=== PATIENT | female | born 1955 | race Caucasian/White ===

== ENCOUNTER 2018-12-16 09:38 | Outpatient (CLI) | payer BC, SELFPAY ==
[2018-12-16 12:25] LABS: Abs Immature Grans 0.02 k/cumm (0.0-0.09); Absolute Basophil Count 0.02 k/cumm (0.0-0.2); Absolute Eosinophil Count 0.25 k/cumm (0.0-0.7); Absolute Lymphocyte Count 1.73 k/cumm (1.2-3.4); Absolute Monocyte Count 0.44 k/cumm (0.11-0.7); Absolute Neutrophil Count 2.76 k/cumm (1.2-6.7); Basophils % 0.4; Eosinophils % 4.8; HCT 40.4 % (36.0-46.0); HGB 13.2 g/dL (12.0-15.5); Immature Grans % 0.4; Lymphocytes % 33.1; Mean Corp. HGB Concentration 32.7 g/dL (32.0-36.0); Mean Corpuscular Hemoglobin 31.1 pg (27.0-33.0); Mean Corpuscular Volume 95.1 fL (80-95); Mean Platelet Volume 9.1 fL (8.0-11.0); Monocytes % 8.4; Neutrophils % 52.9; Platelet Count 225 x1000/uL (130-400); RBC 4.25 m/cumm (4.00-5.20); RBC Distribution Width 13.8 % (11.7-14.6); White Blood Cell Count 5.22 k/cumm (4.4-10.8)
[2018-12-16 12:29] LABS: ALT 13 U/L (12-78); AST 18 U/L (15-37); Albumin 3.8 g/dL (3.4-5.0); Alkaline Phosphatase 80 U/L (46-116); Anion Gap 5.4 mmol/L (3-11); BUN 24 mg/dL (7-18); Bilirubin, Total 0.4 mg/dL (0.2-1.0); CO2 30.6 mmol/L (21.0-32.0); CREATININE 0.97 mg/dL (0.55-1.02); Calcium 8.9 mg/dL (8.5-10.1); Chloride 106 mmol/L (98-107); Glucose 97 mg/dL (70-100); Potassium 4.5 mmol/L (3.5-5.1); Sodium 142 mmol/L (136-145); TSH 1.27 uIU/mL (0.358-3.74); Total Protein 7.1 g/dL (6.4-8.2)
== END 2018-12-16 09:58 ==
PROVIDERS: PCP Family Medicine; Visit Provider Family Medicine
DX: Z00.00 Encounter for general adult medical examination without abnormal findings (principal); L65.9 Nonscarring hair loss, unspecified; Z86.2 Personal history of diseases of the blood and blood-forming organs and certain disorders involving the immune mechanism
CPT/HCPCS: 36415; 80053; 84443; 85025

== ENCOUNTER 2019-02-03 08:04 | Outpatient (CLI) | payer BC, SELFPAY ==
[2019-02-03 12:47] LABS: Vitamin B12 602 pg/mL (193-986)
[2019-02-05 08:57] LABS: Vitamin D 25 Total 19.7 ng/ml (30-100)
== END 2019-02-03 08:24 ==
PROVIDERS: PCP Family Medicine; Visit Provider Family Medicine
DX: L65.9 Nonscarring hair loss, unspecified (principal)
CPT/HCPCS: 36415; 82306; 82607

== ENCOUNTER 2019-05-12 10:43 | Outpatient (CLI) | payer BC, SELFPAY ==
[2019-05-15 07:54] LABS: Vitamin D 25 Total 72.9 ng/ml (30-100)
== END 2019-05-12 11:03 ==
PROVIDERS: PCP Family Medicine; Visit Provider Family Medicine
DX: E55.9 Vitamin D deficiency, unspecified (principal); Z00.00 Encounter for general adult medical examination without abnormal findings
CPT/HCPCS: 36415; 82306

== ENCOUNTER 2020-09-16 04:09 | Outpatient (CLI) | payer BC, SELFPAY ==
[2020-09-16 13:48] LABS: ALT 13 U/L (14-59); AST 18 U/L (15-37); Albumin 3.8 g/dL (3.4-5.0); Alkaline Phosphatase 84 U/L (46-116); Anion Gap 10.3 mmol/L (3-11); BUN 19 mg/dL (7-18); Bilirubin, Total 0.4 mg/dL (0.2-1.0); CO2 27.7 mmol/L (21.0-32.0); CREATININE 0.98 mg/dL (0.55-1.02); Calcium 8.7 mg/dL (8.5-10.1); Calculated LDL 141 mg/dL (<100); Chloride 106 mmol/L (98-107); Cholesterol 202 mg/dL (<200); Estimated GFR 57.14 (mL/min/1.73m2); Glucose 121 mg/dL (74-106); HDL Cholesterol 48 mg/dL (40-60); Sodium 144 mmol/L (136-145); Total Protein 6.9 g/dL (6.4-8.2); Triglyceride 65 mg/dL (<150)
[2020-09-16 13:56] LABS: Hemoglobin A1C 6.6 % (<5.7)
[2020-09-16 14:05] LABS: Vitamin D 25 Total 100.7 ng/ml (30-100)
== END 2020-09-16 04:29 ==
PROVIDERS: PCP Family Medicine; Visit Provider Family Medicine
DX: Z00.00 Encounter for general adult medical examination without abnormal findings (principal); E11.9 Type 2 diabetes mellitus without complications
CPT/HCPCS: 36415; 80053; 80061; 82306; 83036

== ENCOUNTER 2020-10-08 00:37 | Outpatient (CLI) | payer BC, SELFPAY ==
--- NOTE | 2020-10-08 09:10 | DI.MAMMO_ITS ---
EXAM: MG MAMMO SCREENING CLINICAL HISTORY: screening,Z12.39 TECHNIQUE: Bilateral full field digital CC and MLO mammographic images were obtained with 3D tomosyn thesis and utilizing computer aided detection (CAD). COMPARISON: Available for comparison. FINDINGS: Masses/Architectural Distortion: None seen. Stable asymmetric densities in the upper outer quadrant o f both breasts. Microcalcifications: No suspicious pleomorphic-type are seen. Skin Thickening/Nipple Retraction: None. IMPRESSION: 1. No significant interval change with no specific features of malignancy noted. 2. Unless there is more urgent need, screening mammography is recommended, as per [employer] guidelines. BI-RADS Category 1 - Negative Breast Density - Category B - Scattered areas of fibroglandular density A negative radiographic report should not delay biopsy if a dominant or clinically suspicious mass is present. Up to ten percent of cancers are not identified on mammography. A negative report may reinforce clinical impression. Adenosis and dense breasts may obscure an underlying neoplasm. False positive reports average 6 to 10%. Patient will receive a letter notifying them of these results.
== END 2020-10-08 00:57 ==
PROVIDERS: PCP Family Medicine; Visit Provider Family Medicine
DX: Z12.31 Encounter for screening mammogram for malignant neoplasm of breast (principal)
CPT/HCPCS: 77063; 77067

== ENCOUNTER 2021-09-05 11:16 | Outpatient (CLI) | payer MEDICARE, SELFPAY ==
[2021-09-05 12:38] LABS: Hemoglobin A1C 6.4 % (<5.7)
[2021-09-05 13:27] LABS: ALT 16 U/L (14-59); AST 16 U/L (15-37); Albumin 4.1 g/dL (3.4-5.0); Alkaline Phosphatase 90 U/L (46-116); Anion Gap 7.7 mmol/L (3-11); BUN 19 mg/dL (7-18); Bilirubin, Total 0.4 mg/dL (0.2-1.0); CO2 26.3 mmol/L (21.0-32.0); CREATININE 0.9 mg/dL (0.55-1.02); Calcium 8.9 mg/dL (8.5-10.1); Chloride 106 mmol/L (98-107); Glucose 86 mg/dL (74-106); Potassium 4.2 mmol/L (3.5-5.1); Sodium 140 mmol/L (136-145); Total Protein 7.5 g/dL (6.4-8.2)
[2021-09-08 06:12] LABS: Vitamin D 25 Total 81.6 ng/mL (30-100)
== END 2021-09-05 11:17 | disposition home or self-care (01) ==
LOC: LOS 11:16
PROVIDERS: PCP Family Medicine; Referring Provider Family Medicine; Visit Provider Family Medicine
DX: E11.9 Type 2 diabetes mellitus without complications (principal); E55.9 Vitamin D deficiency, unspecified; K76.0 Fatty (change of) liver, not elsewhere classified; R68.89 Other general symptoms and signs
CPT/HCPCS: 36415; 80053; 82306; 83036

== ENCOUNTER 2021-10-06 12:17 | Outpatient (REF) | payer MEDICARE, SELFPAY ==
--- NOTE | 2021-10-06 08:45 | PAPFT_PTH ---
PATIENT: Jennifer Sandra LOC: [facility] U#:[id number] AGE/SX: 65/F ROOM: RE10/06/[address]: Jacquelyn Gan MD, DC : 1955 BED: DIS: 10/06/2021 SPEC #: [id number] RECD: 10/06/21 18:18 STATUS: GRAHAM REThiago #: [id number] DARWIN: 10/06/21 08:[address]: Jacquelyn Gan DEPT: [facility] Cytology RECD BY: Jordana Ramsey Tissues: 1 - CX/ENDOCX FOR PAP SMEARS Procedures: PAP THIN PREP/UVM Screening HPV DNA PROBE Comments:
== END 2021-10-06 12:18 | disposition home or self-care (01) ==
LOC: LBN 12:17
PROVIDERS: PCP Family Medicine; Visit Provider Family Medicine
DX: Z11.51 Encounter for screening for human papillomavirus (HPV) (principal); Z01.419 Encounter for gynecological examination (general) (routine) without abnormal findings; Z12.4 Encounter for screening for malignant neoplasm of cervix
CPT/HCPCS: 88142; 87624

== ENCOUNTER 2021-10-10 03:08 | Outpatient (CLI) | payer MEDICARE, SELFPAY ==
[2021-10-10 13:28] LABS: BUN 15 mg/dL (7-18); Calcium 8.6 mg/dL (8.5-10.1); Cholesterol 215 mg/dL (<200); Estimated GFR 55.64 (mL/min/1.73m2); Glucose 110 mg/dL (74-106)
[2021-10-10 13:29] LABS: ALT 15 U/L (14-59); AST 16 U/L (15-37); Albumin 3.8 g/dL (3.4-5.0); Alkaline Phosphatase 88 U/L (46-116); Anion Gap 6.9 mmol/L (3-11); Bilirubin, Total 0.4 mg/dL (0.2-1.0); CO2 28.1 mmol/L (21.0-32.0); Calculated LDL 147 mg/dL (<100); Chloride 107 mmol/L (98-107); HDL Cholesterol 51 mg/dL (40-60); Potassium 4.2 mmol/L (3.5-5.1); Sodium 142 mmol/L (136-145); Total Protein 6.8 g/dL (6.4-8.2); Triglyceride 89 mg/dL (<150)
[2021-10-10 14:51] LABS: Hemoglobin A1C 6.4 % (<5.7)
[2021-10-13 09:15] LABS: Vitamin D 25 Total 72.7 ng/mL (30-100)
[2021-10-13 09:32] LABS: Hepatitis C Ab w Rflx HCV PCR Negative (Negative)
== END 2021-10-10 03:09 | disposition home or self-care (01) ==
LOC: LOS 03:08
PROVIDERS: PCP Family Medicine; Visit Provider Family Medicine
DX: E11.9 Type 2 diabetes mellitus without complications (principal); K76.0 Fatty (change of) liver, not elsewhere classified; E55.9 Vitamin D deficiency, unspecified; Z11.59 Encounter for screening for other viral diseases
CPT/HCPCS: 36415; 80053; 80061; 82306; 86803; 83036

== ENCOUNTER 2021-12-05 00:16 | Outpatient (CLI) | payer MEDICARE, SELFPAY ==
--- NOTE | 2021-12-05 06:15 | DI.DEXA_ITS ---
Exam(s) XR DEXA BONE DENSITY W/WO NOELLE EXAM: XR DEXA BONE DENSITY W/WO NOELLE CLINICAL HISTORY: osteoporosis,M81.0 TECHNIQUE: COMPARISON: No exams were available for comparison FINDINGS: Lateral Spine Image: Unremarkable. No compression deformities identified. Left hip: Total T-Score: 1.0 Total Z-Score: 2.3 T- and Z-scores: Within normal limits. Lumbar Spine: Total T-Score: -0.6 Total Z-Score: 1.3 T- and Z-scores: Within normal limits. IMPRESSION: No evidence of osteoporosis.
--- NOTE | 2021-12-05 08:19 | DI.MAMMO_ITS ---
Exam(s) MAMMO SCREENING EXAM: MAMMO SCREENING CLINICAL HISTORY: screening,Z12.39 TECHNIQUE: Bilateral full field digital CC and MLO mammographic images were obtained with 3D tomosyn thesis and utilizing computer aided detection (CAD). COMPARISON: Available for comparison. FINDINGS: Masses/Architectural Distortion: There is a small asymmetric density in the superior right breast on the MLO view 7 cm from the nipple. Microcalcifications: No suspicious pleomorphic-type are seen. Skin Thickening/Nipple Retraction: None. IMPRESSION: 1. Focal asymmetric density in superior right breast on the MLO view. 2. This area should be further evaluated with a spot compression view. Ultrasound may be indicated a t that time. BI-RADS Category 0 - Assessment Incomplete: Need additional imaging evaluation Breast Density - Category B - Scattered areas of fibroglandular density Breast density category C or D implies that the patient has dense breast tissue. Dense breast tissue is very common and is not abnormal but dense breast tissue can make it harder to find cancer on a ma mmogram. Also, dense breast tissue may increase their breast cancer risk. This information about the result of the mammogram report was provided to the patient to raise their awareness. Use this report when you speak with the patient about their risks for breast cancer, which includes their family hist ory. At that time, you may recommend for more screening tests (Ultrasound or MRI) as they might be us eful based on their risk. A negative radiographic report should not delay biopsy if a dominant or clinically suspicious mass is present. Up to ten percent of cancers are not identified on mammography. A negative report may reinforce clinical impression. Adenosis and dense breasts may obscure an underlying neoplasm. False positive reports average 6 to 10%. Patient will receive a letter notifying them of these results.
== END 2021-12-05 00:36 ==
PROVIDERS: PCP Family Medicine; Visit Provider Family Medicine
DX: Z13.820 Encounter for screening for osteoporosis (principal); Z12.39 Encounter for other screening for malignant neoplasm of breast; R92.8 Other abnormal and inconclusive findings on diagnostic imaging of breast
CPT/HCPCS: 77063; 77067; 77080

== ENCOUNTER 2021-12-19 00:18 | Outpatient (CLI) | payer MEDICARE, SELFPAY ==
--- NOTE | 2021-12-19 09:00 | DI.MAMMO_ITS ---
Exam(s) MAMMO SCREEN CALL BACK UNI EXAM: MAMMO SCREEN CALL BACK UNI CLINICAL HISTORY: F/U ABNL MAMMO, FOCAL ASYMMETRIC DENSITY IN SUPERIOR RT BREAST TECHNIQUE: Spot compression views and tomographic imaging were performed. COMPARISON: 05 December 2021 and 2013 FINDINGS: No suspicious masses or suspicious microcalcifications are seen. No persistent abnormality is seen on the additional views performed. The findings are consistent wit h overlying fibroglandular tissue. There has been no significant change from prior exams. IMPRESSION: BI-RADS Category 1, Negative Yearly screening mammography is recommended. Breast Density - Category B, scattered fibroglandular densities.
== END 2021-12-19 00:38 ==
PROVIDERS: PCP Family Medicine; Visit Provider Family Medicine
DX: Z12.31 Encounter for screening mammogram for malignant neoplasm of breast (principal); R92.8 Other abnormal and inconclusive findings on diagnostic imaging of breast; N64.59 Other signs and symptoms in breast
CPT/HCPCS: 77063; 77067

== ENCOUNTER 2022-10-16 01:34 | Outpatient (CLI) | payer MEDICARE, SELFPAY ==
[2022-10-16 17:16] LABS: Vitamin D 25 Total 76.3 ng/mL (30-100)
== END 2022-10-16 01:35 | disposition home or self-care (01) ==
LOC: LOS 01:35
PROVIDERS: PCP Family Medicine; Visit Provider Family Medicine
DX: E55.9 Vitamin D deficiency, unspecified (principal)
CPT/HCPCS: 36415; 82306

== ENCOUNTER 2023-11-03 02:50 | Outpatient (CLI) | payer MEDICARE, SELFPAY ==
[2023-11-03 13:08] LABS: Hemoglobin A1C 6.4 % (<5.7)
[2023-11-03 13:27] LABS: Vitamin D 25 Total 92.8 ng/mL (30-100)
== END 2023-11-03 02:51 | disposition home or self-care (01) ==
LOC: LOS 02:50
PROVIDERS: PCP Family Medicine; Visit Provider Family Medicine
DX: E55.9 Vitamin D deficiency, unspecified (principal); E11.9 Type 2 diabetes mellitus without complications
CPT/HCPCS: 36415; 82306; 83036

== ENCOUNTER 2024-11-28 09:04 | Outpatient (CLI) | payer MEDICARE, SELFPAY ==
[2024-11-28 13:05] LABS: ALT 9 U/L (14-59); AST 20 U/L (15-37); Albumin 4.1 g/dL (3.4-5.0); Alkaline Phosphatase 93 U/L (46-116); Anion Gap 5.9 mmol/L (3-11); BUN 19 mg/dL (7-18); Bilirubin, Total 0.58 mg/dL (0.2-1.0); CO2 29.1 mmol/L (21.0-32.0); CREATININE 1.1 mg/dL (0.55-1.02); Calcium 9.4 mg/dL (8.5-10.1); Calculated LDL 147 mg/dL (<100); Chloride 109 mmol/L (98-107); Cholesterol 225 mg/dL (<200); Estimated GFR 54.73 (mL/min/1.73m2); Glucose 104 mg/dL (74-106); HDL Cholesterol 64 mg/dL (40-60); Potassium 4.1 mmol/L (3.5-5.1); Sodium 144 mmol/L (136-145); TSH (W/Ref FT4) 2.58 uIU/mL (0.36-3.74); Triglyceride 73 mg/dL (<150)
[2024-11-28 13:17] LABS: Hemoglobin A1C 5.9 % (<5.7)
== END 2024-11-28 09:05 | disposition home or self-care (01) ==
LOC: LOS 09:05
PROVIDERS: PCP Family Medicine; Referring Provider Family Medicine; Visit Provider Family Medicine
DX: E11.9 Type 2 diabetes mellitus without complications (principal); I10 Essential (primary) hypertension; E03.9 Hypothyroidism, unspecified; Z12.39 Encounter for other screening for malignant neoplasm of breast; Z23 Encounter for immunization
CPT/HCPCS: 36415; 80053; 80061; 83036; 84443

== ENCOUNTER 2024-12-15 00:56 | Outpatient (CLI) | payer MEDICARE, SELFPAY ==
--- OUTSIDE RECORDS SUMMARY | 2024-12-15 01:00 | XMS_ITS | Encounter Summary ---
Author Organization [facility] Address [address] [place] [address] Care Team Providers Care Associate Sales Name Role Phone Unavailable Primary Care Provider Unavailabl e Encounter Details Date Type Department Care Team (Late st Contact Info) Description 01/12/2000 Results Only [facility] - Map conversion [address] [place] [address] Marilee Carpenter NP Social History Tobacco Use Types Packs/Day Years Used Date Smoking Tobacco: Never Assessed Comments Unknown Sex and Gender Information Value Date Recorded Sex Assigned at Not on file Legal Sex Female 18:09 EST Gender Identity Not on file Sexual Orientation Not on file documented as of this encounter Plan of Treatment Not on file documented as of this encounter Procedures Procedure Name Priority Date/Time Associated Diagnosis Comments CYTOPATHOLOGY Routine 01/12/2000 12:10 EST documented in this encounter Results * CYTOPATHOLOGY (01/12/2000 12:10 EST) Pathology Report: CYTOPATHOLOGY REPORT Reports generated via electronic interface contain original data; however they are lacking the format of the original report. Caution should be taken when reading/interpreti ng unformatted reports. Name: ? JENNIFER PARIKH ? Accession #: ? [id number] : ? 1955 (Age: 44) ??F ?Collect Date: ? 01/12/2000 Location: ?Receive Date: ? 01/12/2000 Provider: ?MARILEE CARPENTER NP Copy to: ?MARILEE CARPENTER NP ? Specimen/Source: ?Barrel Stave Inspector ThinPrep Last Menstrual Period: ? GYNECOLOGIC ??CYTOPATHOLOGY ??REPORT Name: JENNIFER PARIKH ?[facility] : 1955 ?? 44Y F ?Client ID: [id number] SS#: [id number] ? Clinician: GWYN CARPENTER NP ?? Location: [facility] ??Copy to: ?? Specimen: ?Barrel Stave Inspector ThinPrep ? Source: Cervix/Endocervix ?Collected: 01/08/00 ? Received: 01/12/2000 ?LMP: 12/26/99 ? Hormone Therapy: Yes ? : No ? Radiation Therapy: No ?? Post : No ?Chemotherapy: No ?IUD: No ? Prev Abnormal Pap: No ?? Clinical Hx: ?(Blank isidro indicate information not provided on requisition) SPECIMEN ADEQUACY: ? Satisfactory For Evaluation ?? GENERAL CATEGORIZATION: ? WITHIN NORMAL LIMITS ? Reviewed And Electronically Signed By: ? Mickie Alves, SCT(ASCP) ? Report Date: ?? 01/13/2000 [facility] Archived Tests - Final Diagnosis Text Field: Clinical History : ? Document reviewed and electronically signed by: ? Conversion ? Report Date: ??01/13/2000 00:00 End of Report DANIEL STACY 01/12/2000 12:1 0 EST 01/12/2000 12:11 EST us Marilee Carpenter NP PATHOLOGY ORDERABLES Final Re sult DANIEL STACY [address] [place] [address] documented in this encounter Visit Diagnoses Not on filedocumented in this encounter
--- OUTSIDE RECORDS SUMMARY | 2024-12-15 01:00 | XMS_ITS | Referral Summary ---
Author Organization [facility] Address [address] [place] [address] Care Team Providers Care Mainspring Strip Gauger Name Role Phone Angelic Love MD Primary Care Provide r Unavailable Social History Tobacco Use Types Packs/Day Years Used Date Smoking Tobacco: Never Assessed Comments Unknown Sex and Gender Information Value Date Recorded Sex Assigned at Not on file Legal Sex Female 18:09 EST Gender Identity Not on file Sexual Orientation Not on file Plan of Treatment Not on file Procedures Procedure Name Priority Date/Time Associated Diagnosis Comments HEPATITIS C AB W REFLEX TO HCV RNA BY PCR Routine 10/10/2021 9:34 EST from Last 3 Months or Most Recently Relevant to Health Maintenance Results * HEPATITIS C AB W REFLEX TO HCV RNA BY PCR (10/10/2021 9:34 EST) Hep C Antibody Negative Negative 10/13/2021 9:27 EST [facility] Blood VENOUS BLOOD / Unknown 10/10/2021 9:34 EST 10/10/2021 21:29 EST us Provider Outr Resulting Lab CHEMISTRY & BLOOD GA S ORDERABLES Final Result [facility] [address] [place] [address] from Last 3 Months or Most Recently Relevant to Health Maintenance Care Teams Mainspring Strip Gauger Relationship Specialty Start Date End Date Angelic Love MD PCP - General 10/08/15
--- OUTSIDE RECORDS SUMMARY | 2024-12-15 01:00 | XMS_ITS | Encounter Summary ---
Author Organization [facility] [place] [address] Care Team Providers Care Boilermaker Mechanic Name Role Phone Jacquelyn Gan MD Primary Care Provider [phone] Reason for Visit * Reason Comments Skin Check * Consultation (Urgent) - Closed Specialty Diagnoses / Procedures Referred By Contac t Referred To Contact Dermatology Diagnoses SEBORRHEIC DERMATITIS Sly Roberson MD [address] [place] [phone] [facility] Dermatology [address] [place] [address] Referral ID Status Reason Start Date Expiration Date V isits Requested Visits Authorized [id number] Closed Consult, Test & Treat [facility] 12/27/2018 12/27/2019 1 1 Encounter Details Date Type Department Care Team ([facility] Contact Info) Description 12/30/2018 11:00 AM EST Office Visit Dermatology at [facility] [address] [place] [phone] Krystal Henriquez MD Seborrheic dermatitis of scalp; Telogen effluvium Social History Tobacco Use Types Packs/Day Years Used Date Smoking Tobacco: Never Smokeless Tobacco: Never Sex and Gender Information Value Date Recorded Sex Assigned at Not on file Gender Identity Not on file Sexual Orientation Not on file documented as of this encounter Progress Notes * Krystal Henriquez MD - 12/30/2018 11:00 AM EST DERMATOLOGY OUTPATIENT CLINIC NOTE Date of service: 12/30/2018 Jennifer Sandra : 1955 Provider: Krystal Henriquez MD PROBLEM: hair loss and itchy scalp SKIN HISTORY: none HPI Jennifer Sandra is a 63 y.o. year old female.Patient is here for hair loss x 2 months. Patient states that she was put on cephalexin because her scalp was red and itchy. Patient was on prednisone taper dose with some improvement in the redness. She has never been given any topicals for the hair loss or the redness. She feels the hair is the most thin on the top of the scalp. She purchased some hair loss shampoo at her salon and is tea tree oil based. She has only used it a few times. She has not tried anything else topically. She has not noticed any loss of her eyebrows or other hair on thebody. She does not that her mother also has some thinner hair. Social History: Office work / Self employed Family History: ADR: Allergies not on file CURRENT MEDICATIONS: No current outpatient medications on file. No current facility-administered medications for this visit. PROBLEM LIST: There is no problem list on file for this patient. ROS General: feeling well. Oriented X 3. Skin: denies other skin complaints EXAM General: NAD, pleasant, cooperative Skin: focused exam of the scalp Significant skin findings: - scalp: diffuse erythema with a little scale; - slight widening of the part on the scalp vertex; eyebrows intact and no perifollicular erythema; patient reports no muscle weakness ASSESSMENT/PLAN Seborrheic Dermatitis -I discussed this condition with the patient, overgrowth of yeast that usually comes in the oily areas and skin folds. Chronic condition and maintenance with topical treatments. 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 - Ok to continue washing and styling as normal, Ok to use any shampoo, if she would like to use a shampoo with no fragrance then consider Free and Clear. - Discussed Minoxidil 5% with patient, no need at this time, but she may consider in the future - CBC, CMP, and TSH done at an outside hospital recently all appeared normal ? RTC - 6 months for mohsen derm f/u Note initiated and routed to physician for review and change by: Jackie Bustillos, [facility] I, Zita Andujar , have performed the documentation for this encounter in the presenceof and acting as a scribe for Krystal Henriquez MD. I, Dr. Krystal Henriquez, performed the visit service though my nurse assisted me in scribing the note. I reviewed and edited this note above, a scribed service performed by my nurse. On closure of this note I agree with the accuracy of the documentation. Krystal Henriquez MD Section of Dermatology [facility] documented in this encounter Plan of Treatment Not on file documented as of this encounter Visit Diagnoses Diagnosis Seborrheic dermatitis of scalp Other seborrheic dermatitis Telogen effluvium documented in this encounter Care Teams Boilermaker Mechanic Relationship Specialty Start Date End Date Jacquelyn Gan MD [address] [place] [address] PCP - General Family Medicine 12/30/18 documented as of this encounter
--- OUTSIDE RECORDS SUMMARY | 2024-12-15 01:00 | XMS_ITS | Encounter Summary ---
Author Organization [facility] Address [address] [place] [address] Care Team Providers Care Tungsten Tender Name Role Phone Unavailable Primary Care Provider Unavailabl e Encounter Details Date Type Department Care Team (Late st Contact Info) Description 03/27/2004 Results Only [facility] - [place] conversion [address] [place] [address] Marilee Carpenter NP Social History Tobacco Use [...] Priority Date/Time Associated Diagnosis Comments CYTOPATHOLOGY Routine 03/27/2004 0:00 EDT documented in this encounter Results * CYTOPATHOLOGY (03/27/2004 0:00 EDT) Pathology Report: CYTOPATHOLOGY REPORT Reports generated via electronic interface contain original data; however they are lacking the format of the original report. Caution should be taken when reading/interpreti ng unformatted reports. Name: ? JENNIFER SANDRA ? Accession #: ? [id number] : ? 1955 (Age: 48) ??F ?Collect Date: ? 03/27/2004 Location: ? [facility] ? Receive Date: ? 03/28/2004 Provider: ?MARILEE CARPENTER METAL DRILLING MACHINE OPERATOR Copy to: ? Specimen/Source: ?ThinPrep Pap Test, Cervix/Endocervix Last Menstrual Period: ? 03/18/04 Hormonal/Contracep tive Status: ? Oral contraceptives Previous Gynecologic Pathology: ? Benign cellular changes: 12/30 Other: ? Additional clinical information: Paps 2002 & 2003 negative ? SPECIMEN ADEQUACY ? Satisfactory for Evaluation - transformation zone component present GENERAL CATEGORIZATION ? Negative for Intraepithelial Lesion or Malignancy INTERPRETATION ? Reactive cellular changes associated with inflammation present (includes repair). ? Document reviewed and electronically signed by: ? Gilmer Mcclain MD ? Report Date: ??04/03/2004 13:06 End of Report DANIEL STACY 03/27/2004 03/28/2004 us Marilee Carpenter NP PATHOLOGY ORDERABLES Final Re sult DANIEL STACY [address] [place] [address] documented in this encounter Visit Diagnoses Not on filedocumented in this encounter
--- OUTSIDE RECORDS SUMMARY | 2024-12-15 01:00 | XMS_ITS | Encounter Summary ---
Author Organization [facility] Address [address] [place] [address] Care Team Providers Care Social Media Director Name Role Phone Angelic Love MD Primary Care Provide r Unavailable Encounter Details Date Type Department Care Team (Late st Contact Info) Description 10/07/2021 Lab Requisition [facility] Pathology & Laboratory Medicine - [address] [address] Jacquelyn Gan MD [address] [place] [phone] Encounter for other general examination Social History Tobacco Use Types Packs/Day Years [...] Procedure Name Priority Date/Time Associated Diagnosis Comments PAP TEST Today 10/06/2021 8:45 EST Encounter for other general examination HPV DNA DETECTION WITH GENOTYPING, PCR Today 10/06/2021 8:45 EST Encounter for other general examination documented in this encounter Results * HUMAN PAPILLOMAVIRUS (HPV) DETECTION-HIGH RISK TYPES (10/06/2021 8:45 EST) HPV other High Risk types, PCR Negative Negative 10/15/2021 7:[address] [facility] Comment:No E6 or E7 mRNA is detected from HPV types 16,18,31,33,35,39,45,51,52,56,58,59,66, and 68 by shop welder mediated amplification. Papanicolaou smear specimen (specimen) CERVIX UTERI STRUCTURE / Unknown 10/06/2021 8:45 EST 10/13/2021 15:42 EST Jacquelyn Gan MD MICROBIOLOGY - GENERAL ORDE MICHELLE Final Result [facility] [address] [place] [address] * PAP TEST (10/06/2021 8:45 EST) Specimens A. Cervix and/or Endocervix , ThinPrep Imaging System with Manual Evaluation 10/15/2021 7:29 [facility] Specimen Adequacy Satisfactory for Evaluation - transformation zone component present 10/15/2021 7:29 [facility] General Categorization Negative for intraepithelial lesion or malignancy 10/15/2021 7:29 [facility] Attestation . 10/15/2021 7:29 [facility] at 0729 Clinical History See below 10/15/20 7:29 [facility] HPV The result for the Human Papillomavirus (HPV) Detection-High Risk Types is Negative. No E6 or E7 mRNA is detected from HPV types 16,18,31,33,35,39 ,45,51,52,56,58,5 9,66, and 68 by shop welder mediated amplification.Flor ting was performed on specimen [id number] and was resulted on 10/15/2021 0710 EST by POOJA, LAB INSTRUMENT RESULTS IN 10/15/2021 7:29 [facility] Performing Lab [facility] 10/15/2021 7:29 [facility] Scanned Images 10/15/2021 7:29 [facility] Papanicolaou smear specimen (specimen) CERVIX UTERI STRUCTURE / Unknown 10/06/2021 8:45 EST 10/07/2021 14:26 EST Jacquelyn Gan MD PATHOLOGY ORDERABLES Final Result [facility] [address] [place] [address] documented in this encounter Visit Diagnoses Diagnosis Encounter for other general examination documented in this encounter Care Teams Social Media Director Relationship Specialty Start Date End Date Angelic Love MD PCP - General 10/08/15 documented as of this encounter
--- OUTSIDE RECORDS SUMMARY | 2024-12-15 01:00 | XMS_ITS | Encounter Summary ---
Author Organization [facility] Address [address] [place] [address] Care Team Providers Care Outsole Skiver Name Role Phone Unavailable Primary Care Provider Unavailabl e Encounter Details Date Type Department Care Team (Late st Contact Info) Description 02/15/2008 Results Only [facility] conversion [address] [place] [address] Marilee Carpenter NP Social History Tobacco Use [...] Priority Date/Time Associated Diagnosis Comments CYTOPATHOLOGY Routine 02/15/2008 0:00 EDT documented in this encounter Results * CYTOPATHOLOGY (02/15/2008 0:00 EDT) Pathology Report: CYTOPATHOLOGY REPORT Reports generated via electronic interface contain original data; however they are lacking the format of the original report. Caution should be taken when reading/interpreti ng unformatted reports. Name: ? JENNIFER SANDRA ? Accession #: ? [id number] : ? 1955 (Age: 52) ??F ?Collect Date: ? 02/15/2008 Location: ? [facility] ? Receive Date: ? 02/15/2008 Provider: ?MARILEE CARPENTER HAND THERAPIST Copy to: ? Specimen/Source: ?ThinPrep Pap Test, Cervix/Endocervix, processed on [employer] Virtus ThinPrep Imaging System, with manual evaluation Last Menstrual Period: ? 2004 Previous Gynecologic Pathology: ? Benign cellular changes: 12/30 ? SPECIMEN ADEQUACY ? Satisfactory for Evaluation - transformation zone component present GENERAL CATEGORIZATION ? Negative for Intraepithelial Lesion or Malignancy ? Document reviewed and electronically signed by: ? [place], [place](ASCP) ? Report Date: ??02/21/2008 10:19 End of Report DANIEL STACY 02/15/2008 02/15/2008 us Marilee Carpenter NP PATHOLOGY ORDERABLES Final Re sult [facility] [address] [place] [address] documented in this encounter Visit Diagnoses Not on filedocumented in this encounter
--- OUTSIDE RECORDS SUMMARY | 2024-12-15 01:00 | XMS_ITS | Encounter Summary ---
Author Organization [facility] Address [address] [place] [address] Care Team Providers Care Collections Professional Name Role Phone Unavailable Primary Care Provider Unavailabl e Encounter Details Date Type Department Care Team (Late st Contact Info) Description 09/11/2014 Results Only [facility] Laboratory Services - [facility] [address] [place], [place] [id number] Jacquelyn Gan MD [address] [place] [phone] Social History Tobacco Use Types Packs/Day Years [...] Name Priority Date/Time Associated Diagnosis Comments PAP TEST- RESULT ONLY Routine 09/11/2014 0:00 EDT documented in this encounter Results * PAP TEST- RESULT ONLY (09/11/2014 0:00 EDT) Pathology Report: CYTOPATHOLOGY REPORT Reports generated via electronic interface contain original data; however they are lacking the format of the original report. Caution should be taken when reading/interpreti ng unformatted reports. Name: ? JENNIFER SANDRA ? Accession #: ? [id number] ? : ? 1955 (Age: 58) ??F ?Collect Date: ? 09/11/2014 ? Location: ? [facility] ? Receive Date: ? 09/12/2014 ? Provider: JACQUELYN GAN MD Copy to: ? Final Report SPECIMEN ADEQUACY ? Satisfactory for Evaluation - transformation zone component present GENERAL CATEGORIZATION ? Negative for Intraepithelial Lesion or Malignancy ?? Menstrual/Pregnanc y Status: ??Post Menopausal Other: Additional clinical information: No h/o abn pap Specimen/Source: ??Pap Test, Cervix/Endocervix, ThinPrep Imaging System with manual evaluation Document reviewed and electronically signed by: ? AKRLA Lacy(ASCP) ? Report ??Date: 09/18/2014 10:09 HPV with Pap Test ? Date Ordered: ? 09/18/2014 ? Status: ?? Signed Out ?Date Complete: ? 09/20/2014 ? By: ??System Interface ? Date Reported: ? 09/20/2014 ? Interpretation RESULT: Negative for HPV. No E6 or E7 mRNA is detected from HPV types 16,18,31,33,35, 39,45,51,52,56,58, 59,66, and 68 by coupler mediated amplification. Comments Document reviewed and electronically signed by: ? System Interface ? Report date: 09/20/2014 By the signature above, the attending physician certifies that he/she has personally conducted a gross and/or microscopic examination of the described specimens and rendered or confirmed the above diagnosis. End of Report [facility] 09/11/2014 09/12/2014 us Jacquelyn Gan MD PATHOLOGY ORDERABLES Final Result Performing Organization Address City/State/[facility] Co de Phone Number [facility] [address] [place] [phone] documented in this encounter Visit Diagnoses Not on filedocumented in this encounter
--- OUTSIDE RECORDS SUMMARY | 2024-12-15 01:00 | XMS_ITS | Encounter Summary ---
Author Organization [facility] Address [address] [place] [address] Care Team Providers Care Automatic Pad Making Machine Operator Name Role Phone Angelic Love MD Primary Care Provide r Unavailable Encounter Details Date Type Department Care Team (Late st Contact Info) Description 01/18/2018 Results Only [facility] [phone] Jacquelyn Gan MD [address] [place] [address] Social History Tobacco Use Types Packs/Day Years [...] Diagnosis Comments PAP TEST- RESULT ONLY Routine 01/18/2018 0:00 EST documented in this encounter Results * PAP TEST- RESULT ONLY (01/18/2018 0:00 EST) Pathology Report: CYTOPATHOLOGY REPORT Reports generated via electronic interface contain original data; however they are lacking the format of the original report. Caution should be taken when reading/interpreti ng unformatted reports. Name: ? ELIZA SANDRA ? Accession #: ? [id number] ? : ? 1955 (Age: 62) ??F ?Collect Date: ? 01/18/2018 ? Location: ? [facility] ? Receive Date: ? 01/20/2018 ? Provider: JACQUELYN GAN MD Copy to: ? Final Report SPECIMEN ADEQUACY ? Satisfactory for Evaluation - transformation zone component present GENERAL CATEGORIZATION ? Negative for Intraepithelial Lesion or Malignancy ?? Menstrual/Pregnanc y Status: ??Post Menopausal Specimen/Source: ??Pap Test, Cervix, ThinPrep Imaging System with manual evaluation Document reviewed and electronically signed by: ? Annamaria Shearer CT(ASCP) ? Report ??Date: 02/01/2018 15:03 HPV with Pap Test ? Date Ordered: ? 02/01/2018 ? Status: ?? Signed Out ?Date Complete: ? 02/02/2018 ? By: ??System Interface ? Date Reported: ? 02/02/2018 ? Interpretation RESULT: Negative for HPV. No E6 or E7 mRNA is detected from HPV types 16,18,31,33,35, 39,45,51,52,56,58, 59,66, and 68 by puller over mediated amplification. Comments Document reviewed and electronically signed by: ? System Interface ? Report date: 02/02/2018 By the signature above, the attending physician certifies that he/she has personally conducted a gross and/or microscopic examination of the described specimens and rendered or confirmed the above diagnosis. End of Report [facility] 01/18/2018 01/20/2018 us Jacquelyn Gan MD PATHOLOGY ORDERABLES Final Result [facility] [address] [place] [address] documented in this encounter Visit Diagnoses Not on filedocumented in this encounter Care Teams Automatic Pad Making Machine Operator Relationship Specialty Start Date End Date Angelic Love MD PCP - General 10/08/15 documented as of this encounter
--- OUTSIDE RECORDS SUMMARY | 2024-12-15 01:00 | XMS_ITS | Encounter Summary ---
Author Organization [facility] Address [address] [place] [address] Care Team Providers Care Torpedo Specialist Name Role Phone Angelic Love MD Primary Care Provide r Unavailable Encounter Details Date Type Department Care Team (Late st Contact Info) Description 10/10/2021 Lab Requisition [facility] [place] [address] Outr Resulting Lab, Provider Social History Tobacco Use Types Packs/Day Years [...] RNA BY PCR Routine 10/10/2021 9:34 EST documented in this encounter Results * HEPATITIS C AB W REFLEX TO HCV RNA BY PCR (10/10/2021 9:34 EST) Hep C Antibody Negative Negative 10/13/2021 9:27 EST [facility] Blood VENOUS BLOOD / Unknown 10/10/2021 9:34 EST 10/10/2021 21:29 EST us Provider Outr Resulting Lab CHEMISTRY & BLOOD GA S ORDERABLES Final Result [facility] [address] [place] [address] documented in this encounter Visit Diagnoses Not on filedocumented in this encounter Care Teams Torpedo Specialist Relationship Specialty Start Date End Date Angelic Love MD PCP - General 10/08/15 documented as of this encounter
--- OUTSIDE RECORDS SUMMARY | 2024-12-15 01:00 | XMS_ITS | Encounter Summary ---
Author Organization [facility] Address [address] [place] [address] Care Team Providers Care Digital Content Manager Name Role Phone Unavailable Primary Care Provider Unavailabl e Encounter Details Date Type Department Care Team (Late st Contact Info) Description 02/09/2002 Results Only [facility] - Map conversion [address] [place] [address] Marilee Carpenter NP Social History Tobacco Use [...] Priority Date/Time Associated Diagnosis Comments CYTOPATHOLOGY Routine 02/09/2002 0:00 EST documented in this encounter Results * CYTOPATHOLOGY (02/09/2002 0:00 EST) Pathology Report: CYTOPATHOLOGY REPORT Reports generated via electronic interface contain original data; however they are lacking the format of the original report. Caution should be taken when reading/interpreti ng unformatted reports. Name: ? JENNIFER SANDRA ? Accession #: ? [id number] : ? 1955 (Age: 46) ??F ?Collect Date: ? 02/09/2002 Location: ? [facility] ? Receive Date: ? 02/10/2002 Provider: ?MARILEE CARPENTER ACCESS ANALYST Copy to: ? Specimen/Source: ?ThinPrep Pap Test, Cervix/Endocervix Last Menstrual Period: ? 01/26/02 Hormonal/Contracep tive Status: ? Oral contraceptives Previous Gynecologic Pathology: ? Benign cellular changes: 12/30 ? SPECIMEN ADEQUACY ? Satisfactory for Evaluation - transformation zone component present GENERAL CATEGORIZATION ? Negative for Intraepithelial Lesion or Malignancy ? Document reviewed and electronically signed by: ? Mickie Alves, SCT(ASCP) ? Report Date: ??02/15/2002 10:54 End of Report [facility] 02/09/2002 02/10/2002 us Marilee Carpenter ACCESS ANALYST PATHOLOGY ORDERABLES Final Re sult [facility] [address] [place] [address] documented in this encounter Visit Diagnoses Not on filedocumented in this encounter
--- OUTSIDE RECORDS SUMMARY | 2024-12-15 01:00 | XMS_ITS | Clinical Summary ---
Author Organization [facility] Address [address] [place] [address] Care Team Providers Care Curriculum Consultant Name Role Phone Angelic Love MD Primary Care Provide r Unavailable Social History Tobacco Use Types Packs/Day Years Used Date Smoking Tobacco: Never Assessed Comments Unknown Sex and Gender Information Value Date Recorded Sex Assigned at Not on file Legal Sex Female 18:09 EST Gender Identity Not on file Sexual Orientation Not on file Plan of Treatment Health Maintenance Due Date Last Done Comments Fall Risk Screening 2020 COVID-19 Vaccine (2023-25 season) 2024 RSV Immunization ( o r 60+ Years) (1 - 1-dose 75+ series) 2030 Hepatitis C Screen Completed 10/10/2021 Procedures Procedure Name Priority Date/Time Associated Diagnosis Comments HEPATITIS C AB W REFLEX TO HCV RNA BY PCR Routine 10/10/2021 9:34 EST from Last 3 Months or Most Recently Relevant to Health Maintenance Results * HEPATITIS C AB W REFLEX TO HCV RNA BY PCR (10/10/2021 9:34 EST) Hep C Antibody Negative Negative 10/13/2021 9:27 EST [facility] Blood VENOUS BLOOD / Unknown 10/10/2021 9:34 EST 10/10/2021 21:29 EST us Provider Outr Resulting Lab CHEMISTRY & BLOOD GA S ORDERABLES Final Result [facility] [address] [place] [address] from Last 3 Months or Most Recently Relevant to Health Maintenance Care Teams Curriculum Consultant Relationship Specialty Start Date End Date Angelic Love MD PCP - General 10/08/15
--- OUTSIDE RECORDS SUMMARY | 2024-12-15 01:00 | XMS_ITS | Encounter Summary ---
Author Organization [facility] Address [address] [place] [address] Care Team Providers Care First Coat Operator Name Role Phone Unavailable Primary Care Provider Unavailabl e Encounter Details Date Type Department Care Team (Late st Contact Info) Description 01/13/2001 Results Only [facility] - Map conversion [address] [place] [address] Marilee Carpenter NP Social History Tobacco Use [...] Priority Date/Time Associated Diagnosis Comments CYTOPATHOLOGY Routine 01/13/2001 0:00 EST documented in this encounter Results * CYTOPATHOLOGY (01/13/2001 0:00 EST) Pathology Report: CYTOPATHOLOGY REPORT Reports generated via electronic interface contain original data; however they are lacking the format of the original report. Caution should be taken when reading/interpreti ng unformatted reports. Name: ? JENNIFER SANDRA ? Accession #: ? [id number] : ? 1955 (Age: 45) ??F ?Collect Date: ? 01/13/2001 Location: ? [facility] ? Receive Date: ? 01/14/2001 Provider: ?MARILEE CARPENTER LEAD SOFTWARE ENGINEER Copy to: ? Specimen/Source: ?ThinPrep Pap Test, Cervix/Endocervix Last Menstrual Period: ? 12/14/00 Hormonal/Contracep tive Status: ? Oral contraceptives ? SPECIMEN ADEQUACY ? Satisfactory for evaluation. GENERAL CATEGORIZATION ? Benign Cellular Changes DESCRIPTIVE DIAGNOSIS ? Reactive cellular changes associated with inflammation present (includes repair). ? Document reviewed and electronically signed by: ? JENNIFER ROBERTSON MD ? Report Date: ??01/18/2001 15:20 End of Report [facility] 01/13/2001 01/14/2001 us Marilee Carpenter NP PATHOLOGY ORDERABLES Final Re sult [facility] [address] [place] [address] documented in this encounter Visit Diagnoses Not on filedocumented in this encounter
--- OUTSIDE RECORDS SUMMARY | 2024-12-15 01:00 | XMS_ITS | Clinical Summary ---
Author Organization [facility] Address [facility] [place] [address] Care Team Providers Care Material Analyst Name Role Phone Jacquelyn Gan MD Primary Care Provider [phone] Allergies Active Allergy Reactions Criticality Noted Date Comments Penicillins Medium 12/30/2018 Per patient she blacked out Medications Medication Sig Dispensed Refills Start Date End Date Status cephalexin (KEFLEX) 500 mg Capsule take 1 capsule by mouth twice a day 0 12/27/2018 Active betamethasone dipropionate (DIPROLENE) 0.05 % LotionIndications: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 at night, use 2-4 nights a week for maintenance, for flaring use nightly 60 mL 2 12/30/2018 Active Active Problems No known active problems Social History Tobacco Use Types Packs/Day Years Used Date Smoking Tobacco: Never Smokeless Tobacco: Never Sex and Gender Information Value Date Recorded Sex Assigned at Not on file Gender Identity Not on file Sexual Orientation Not on file Plan of Treatment Health Maintenance Due Date Last Done Comments CT Colonography 1955 Colonoscopy 1955 Colorectal Cancer Screening 1955 FIT DNA 1955 FIT 1955 Sigmoidoscopy (10 year) with FIT yearly 1955 Sigmoidoscopy 1955 Hepatitis C Screening 1973 Tetanus/Diphtheria/Pertussis Vaccines (1 - Tdap) 12/04 Breast Cancer Share Decision Needed 1995 Breast Cancer screening 1995 Pneumoccocal Vaccine: 50+ (1 of 1 - PCV) 2005 Zoster vaccine (1 of 2) 2005 Advance Directive 2010 Bone Density Scan 2020 Covid-19 Vaccine ( season) 2024 Influenza (Flu) vaccine (1 o f 1 - Influenza standard series) 07/30/2024 Care Teams Material Analyst Relationship Specialty Start Date End Date Jacquelyn Gan MD [address] [place], [place] [id number] PCP - General Family Medicine 12/30/18
--- OUTSIDE RECORDS SUMMARY | 2024-12-15 01:00 | XMS_ITS | Encounter Summary ---
Author Organization [facility] Address [address] [place] [address] Care Team Providers Care Hooker Up Name Role Phone Unavailable Primary Care Provider Unavailabl e Encounter Details Date Type Department Care Team (Late st Contact Info) Description 04/07/2005 Results Only [facility] - Maple conversion [address] [place] [address] [address] [place] [id number] Social History Tobacco Use Types Packs/Day Years [...] Priority Date/Time Associated Diagnosis Comments CYTOPATHOLOGY Routine 04/07/2005 0:00 EDT documented in this encounter Results * CYTOPATHOLOGY (04/07/2005 0:00 EDT) Pathology Report: CYTOPATHOLOGY REPORT Reports generated via electronic interface contain original data; however they are lacking the format of the original report. Caution should be taken when reading/interpreti ng unformatted reports. Name: ? BOAZELIZA Steven ? Accession #: ? [id number] : ? 1955 (Age: 49) ??F ?Collect Date: ? 04/07/2005 Location: ? [facility] ? Receive Date: ? 04/09/2005 Provider: ?GRETEL DAVENPORT PSYCH SOCIAL WORKER Copy to: ? Specimen/Source: ?ThinPrep Pap Test, Cervix/Endocervix Last Menstrual Period: ? 03/18/05 Previous Gynecologic Pathology: ? Benign cellular changes Other: ? HPVA - HPV testing requested if ASC-US on the current ThinPrep Pap test. ? SPECIMEN ADEQUACY ? Satisfactory for Evaluation - transformation zone component present GENERAL CATEGORIZATION ? Negative for Intraepithelial Lesion or Malignancy ? Document reviewed and electronically signed by: ? KARLA Tamayo(ASCP) ? Report Date: ??04/15/2005 13:00 End of Report DANIEL STAC[facility] 04/07/2005 04/09/2005 us Gretel Davenport PSYCH SOCIAL WORKER PATHOLOGY ORDERABLES Final R esult [facility] [address] [place] [address] documented in this encounter Visit Diagnoses Not on filedocumented in this encounter
--- OUTSIDE RECORDS SUMMARY | 2024-12-15 01:00 | XMS_ITS | Encounter Summary ---
Author Organization [facility] Address [address] [place] [address] Care Team Providers Care Partner Manager Name Role Phone Unavailable Primary Care Provider Unavailabl e Encounter Details Date Type Department Care Team (Late st Contact Info) Description 02/12/2003 Results Only [facility] - Map conversion [address] [place] [address] Marilee Carpenter NP Social History Tobacco Use [...] Priority Date/Time Associated Diagnosis Comments CYTOPATHOLOGY Routine 02/12/2003 0:00 EST documented in this encounter Results * CYTOPATHOLOGY (02/12/2003 0:00 EST) Pathology Report: CYTOPATHOLOGY REPORT Reports generated via electronic interface contain original data; however they are lacking the format of the original report. Caution should be taken when reading/interpreti ng unformatted reports. Name: ? JENNIFER SANDRA ? Accession #: ? [id number] : ? 1955 (Age: 47) ??F ?Collect Date: ? 02/12/2003 Location: ? [facility] ? Receive Date: ? 02/13/2003 Provider: ?MARILEE CARPENTER EMPLOYEE BENEFITS COORDINATOR Copy to: ? Specimen/Source: ?ThinPrep Pap Test, Cervix/Endocervix Last Menstrual Period: ? 01/25/03 Hormonal/Contracep tive Status: ? Oral contraceptives Previous Gynecologic Pathology: ? Benign cellular changes: 12/30 ? SPECIMEN ADEQUACY ? Satisfactory for Evaluation - transformation zone component present GENERAL CATEGORIZATION ? Negative for Intraepithelial Lesion or Malignancy ? Document reviewed and electronically signed by: ? Cara Knox, SCT(ASCP) ? Report Date: ??02/14/2003 10:39 End of Report DANIEL STACY 02/12/2003 02/13/2003 us Marilee Carpenter NP PATHOLOGY ORDERABLES Final Re sult [facility] [address] [place] [address] documented in this encounter Visit Diagnoses Not on filedocumented in this encounter
[2024-12-15 13:01] LABS: Vitamin D 25 Total 94.1 ng/mL (30-100)
== END 2024-12-15 00:57 | disposition home or self-care (01) ==
LOC: LOS 00:57
PROVIDERS: PCP Family Medicine; Visit Provider Family Medicine
DX: E55.9 Vitamin D deficiency, unspecified (principal)
CPT/HCPCS: 36415; 82306

== ENCOUNTER 2024-12-18 01:20 | Outpatient (CLI) | payer MEDICARE, SELFPAY | END 2024-12-18 01:40 | LOC: DI 01:21 | PROVIDERS: PCP Family Medicine; Visit Provider Family Medicine | DX: Z12.31 Encounter for screening mammogram for malignant neoplasm of breast (principal); R92.323 Mammographic fibroglandular density, bilateral breasts | CPT/HCPCS: 77063; 77067 ==